=== PATIENT | male | born 1980 | race Hispanic/Latino ===

== ENCOUNTER 2019-08-06 02:45 | Emergency (ER) | payer OTHER ==
[2019-08-06] MEDS ORDERED: MORPHINE SULFATE 4 MG/1ML SYG ONE ×3 (03:07→06:01)
[2019-08-06] MEDS ORDERED: KETOROLAC TROMETHAMINE 30MG/ML ONE (04:55)
[2019-08-06] MEDS ORDERED: MIDAZOLAM HCL 1 MG/ML 2ML VIAL ONE ×3 (05:42→06:05)
[2019-08-06] MEDS ORDERED: KETAMINE 50MG/ML SYRINGE 50 MG/ML DISP.SYRIN IV ONE (05:42)
[2019-08-06] MEDS ORDERED: ONDANSETRON HCL 4 MG/2 ML VIAL ONE (05:43)
[2019-08-06] MEDS ORDERED: PROPOFOL 10 MG/ML 20ML VIAL IV ONE (06:12)
[2019-08-06] MEDS ORDERED: SODIUM CHLORIDE 0.9% 1000ML 1,000 ML IV ONE (07:08)
== END 2019-08-06 08:41 | disposition home or self-care (01) ==
LOC: EDH 02:45
DX: S42.252A Displaced fracture of greater tuberosity of left humerus, initial encounter for closed fracture (principal); S43.085A Other dislocation of left shoulder joint, initial encounter; W18.39XA Other fall on same level, initial encounter; Y93.72 Activity, wrestling; Y92.89 Other specified places as the place of occurrence of the external cause; Y99.8 Other external cause status
CPT/HCPCS: 23665; 73030 ×2; 96374; 96375; 96376; 99152; 99153; 99285; J1885; J2250 ×3; J2270 ×3; J2405; J2704; J3490; J7030